=== PATIENT | female | born 1950 | race Caucasian/White ===

== ENCOUNTER 2017-03-25 09:36 | Day surgery (SDC) | payer MEDICARE, OTHER ==
--- NOTE | ~2017-03-25 | EGD ---
EGD REPORT [facility] [address] [address] NAME: AMBER MCDERMOTT : 54 STATUS : REG [facility]#: [id number] AGE: 67 ADM/REG DATE : 03/25/17 MR#: [id number] REPORT SERV DATE: 03/25/17 DICTATED BY: RAVEN JORDAN DATE: 03/25/17 REPORT STATUS : Draft TRANSCRIBED BY: [employer] DATE: 03/25/17 [facility] Patient Name: Amber Mcdermott Date of : 1950 Attending MD: RAVEN JORDAN MD Procedure Date No Time: 03/25/2017 Procedure: Upper GI endoscopy Indications: Dysphagia, Heartburn, Suspected esophageal reflux, Chronic cough Referring MD: PATTI GURROLA Medicines: as per anesthesia Complications: No immediate complications. Procedure: Pre-Anesthesia Assessment: - ASA Grade Assessment: II - A patient with mild systemic disease. After obtaining informed consent, the endoscope was passed under direct vision. Throughout the procedure, the patient's blood pressure, pulse, and oxygen saturations were monitored continuously. The GIF [id number] was introduced through the mouth, and advanced to the third part of duodenum. The upper GI endoscopy was accomplished without difficulty. The patient tolerated the procedure. Findings: The examined esophagus was normal. The scope was withdrawn. Dilation was performed with a Estevez dilator with no resistance at 46 Fr. A medium-sized hiatus hernia was present. The examined duodenum was normal. Impression: - Normal esophagus. Dilated. - Hiatus hernia. - Normal examined duodenum. Recommendation: - Follow an antireflux regimen. - Continue present medications. Procedure Code(s): --- Professional --- 08958, Esophagogastroduodenoscopy, flexible, transoral; diagnostic, including collection of specimen(s) by brushing or washing, when performed (separate procedure) 85777, Dilation of esophagus, by unguided sound or bougie, single or multiple passes Diagnosis Code(s): --- Professional --- EGD REPORT [place] [address] [place]. [address] NAME: AMBER MCDERMOTT : [birth year] STATUS : REG [facility] [place] PAT#: [id number] AGE: 67 ADM/REG DATE : 03/25/17 MR#: [id number] REPORT SERV DATE: 03/25/17 DICTATED BY: RAVEN JORDAN. DATE: 03/25/17 REPORT STATUS : Draft TRANSCRIBED BY: [employer] DATE: 03/25/17 K44.9, Diaphragmatic hernia without obstruction or gangrene R13.10, Dysphagia, unspecified R12, Heartburn R05, Cough CPT copyright 2013 [employer]. All rights reserved. The codes documented in this report are preliminary and upon registered nurse practitioner review may be revised to meet current compliance requirements. RAVEN JORDAN MD 03/25/2017 1:13 PM This report has been signed electronically. Number of Addenda: 0 Note Initiated On: 03/25/2017 12:48 PM Scope Withdrawal Time 0 hours 0 minutes 0 seconds [address] [place] [address]
[~2017-03-25 09:36] MED LIST: ALLEGRA180 PO; CALTRA600D PO; COMBIPATCH TD; EYE CAPS PO; FISH-EPA1000 MG PO; GLUCCHONDR PO; IMITREX100 MG PO; PRILO PO; VITAMIN D31000 UNIT PO; VITC500 PO
== END 2017-03-25 23:59 | disposition home health service (06) ==
LOC: DMU 09:36
PROVIDERS: Internal Medicine Gastroenterology
PROC: 0D750ZZ Dilation of Esophagus, Open Approach (ICD-10-PCS; principal; 2017-03-25 11:00)
PROC: 0DJ08ZZ Inspection of Upper Intestinal Tract, Via Natural or Artificial Opening Endoscopic (ICD-10-PCS; 2017-03-25 11:00)
DX: K44.9 Diaphragmatic hernia without obstruction or gangrene (principal); G43.909 Migraine, unspecified, not intractable, without status migrainosus; K21.9 Gastro-esophageal reflux disease without esophagitis; M19.90 Unspecified osteoarthritis, unspecified site; M85.80 Other specified disorders of bone density and structure, unspecified site; Z98.890 Other specified postprocedural states; Z79.899 Other long term (current) drug therapy